=== PATIENT | female | born 1945 | race Caucasian/White ===

== ENCOUNTER → 2016-08-10 | Outpatient (CLI) | payer OTHER | LOC: CAT 08:01 | DX: Z13.6 Encounter for screening for cardiovascular disorders (principal); J98.11 Atelectasis; R91.8 Other nonspecific abnormal finding of lung field; Z90.710 Acquired absence of both cervix and uterus ==

== ENCOUNTER → 2019-02-28 | Outpatient (CLI) | payer OTHER | LOC: NUC 10:19 | DX: M81.0 Age-related osteoporosis without current pathological fracture (principal); M85.861 Other specified disorders of bone density and structure, right lower leg; M85.862 Other specified disorders of bone density and structure, left lower leg; Z78.0 Asymptomatic menopausal state ==

== ENCOUNTER → 2020-02-04 | Outpatient (CLI) | payer OTHER | LOC: CAT 08:06 | PROVIDERS: ATTEND Family Medicine | DX: Z12.31 Encounter for screening mammogram for malignant neoplasm of breast (principal) ==

== ENCOUNTER → 2020-03-20 | Outpatient (CLI) | payer OTHER | LOC: LAB 10:06 | PROVIDERS: ATTEND Nurse Practitioner | DX: Z20.828 Contact with and (suspected) exposure to other viral communicable diseases (principal) ==